=== PATIENT | female | born 1965 | race Caucasian/White ===

== ENCOUNTER 2020-06-19 14:17 | Outpatient (CLI) | payer OTHER ==
--- NOTE | 2020-06-19 16:19 | Ultrasound Report ---
PROCEDURE: Duplex Lwr Ext Arterial LT INDICATIONS: CHRONIC ULCER OF LOWER EXTREMITY TECHNIQUE: Color and pulse Doppler interrogation was performed of the left lower extremity arterial system, with image documentation. COMPARISON: No previous study is available for comparison. FINDINGS: Common femoral artery: 91.7 cm/sec, with triphasic flow. Deep femoral artery: 64.9 cm/sec, with triphasic flow. Proximal superficial femoral artery: 79.2 cm/sec, with triphasic flow. Mid superficial femoral artery: 120.7 cm/sec, with triphasic flow. Distal superficial femoral artery: 55.8 cm/sec, with triphasic flow. Popliteal artery: 43.0 cm/sec, with triphasic flow. Posterior tibial artery: 52.8 cm/sec, with triphasic flow. Anterior tibial artery/dorsalis pedis: 23.0/37.3 cm/sec, with biphasic/triphasic flow. Garza-scale imaging description: Mild atherosclerotic plaque is seen at the mid superficial femoral a rtery and within the posterior tibial artery. IMPRESSION: 1. Atherosclerotic plaque is seen in the anterior tibial artery and dorsalis pedis artery with bipha sic flow, indicating mild to moderate stenosis. 2. Mild atherosclerotic plaque at the mid superficial femoral artery with preserved triphasic flow, compatible with minimal stenosis. Reviewed by: Eligio Weber MD on 06/19/2020 4:18 PM PDT Approved by: Eligio Weber MD on 06/19/2020 4:18 PM PDT Station ID: [id number]
== END 2020-06-19 14:18 | disposition home or self-care (01) ==
LOC: DI 14:17
PROVIDERS: ATTEND Physician Assistant
DX: L97.921 Non-pressure chronic ulcer of unspecified part of left lower leg limited to breakdown of skin (principal); I70.202 Unspecified atherosclerosis of native arteries of extremities, left leg

== ENCOUNTER 2020-07-06 14:40 | Outpatient (CLI) | payer OTHER ==
--- NOTE | 2020-07-06 15:59 | Ultrasound Report ---
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 COMPARISONS: None. FINDINGS: Right ankle brachial index (KATIE): 1.1 Left ankle brachial index (KATIE): 1.2 Monophasic waveforms are visualized within the right posterior tibial and dorsalis pedis arteries. Bi phasic waveforms are visualized within the left posterior tibial and dorsalis pedis arteries. Healing potential: Ankle pressures >55 mm Hg in non-diabetics and >80 mm Hg in diabetics are likely to achieve primary h ealing of ischemic foot ulcers. Toe pressures >30 mm Hg are likely to achieve primary healing of ischemic foot ulcers, toe or transme tatarsal amputations. IMPRESSION: 1. Bilateral ankle-brachial indices which indicate adequate pressures for wound healing. However, ank le-brachial indices can be artificially elevated in the presence of extensive vascular calcifications . If further characterization for lower extremity arterial stenosis is required, CT aortogram with bi lateral lower extremity runoff could be used. Reviewed by: Vanessa Vo MD on 07/06/2020 3:57 PM PDT Approved by: Vanessa Vo MD on 07/06/2020 3:57 PM PDT Station ID: [id number]
== END 2020-07-06 14:41 | disposition home or self-care (01) ==
LOC: DI 14:40
PROVIDERS: ATTEND Nurse Practitioner Family
DX: I70.202 Unspecified atherosclerosis of native arteries of extremities, left leg (principal)
CPT/HCPCS: 93922

== ENCOUNTER 2020-11-14 09:43 | Outpatient (CLI) | payer OTHER ==
--- NOTE | 2020-11-14 10:48 | XRAY Report ---
PROCEDURE: Wrist 4 View LT INDICATIONS: PAIN IN LEFT WRIST TECHNIQUE: 4 views of the wrist were acquired. COMPARISON: None FINDINGS: Bones: No fractures or dislocations. No suspicious bony lesions. Scaphoid view: No trauma to the scaphoid is found. Soft tissues: No suspicious soft tissue calcifications. IMPRESSION: On the lateral view at the dorsal aspect of the distal radius there is a small bone radiodensity that protrudes posterior to the expected cortical margin. This may reflect presence of a mildly distorted distal radius fracture seen on one view only. Please correlate for point tenderness in that region. Follow-up CT scanning or delayed plain film follow-up may be warranted depending on the clinical stat us. Reviewed by: Howard Owen MD on 11/14/2020 10:47 AM PST Approved by: Howard Owen MD on 11/14/2020 10:47 AM [facility] Station ID: [id number]
== END 2020-11-14 09:44 | disposition home or self-care (01) ==
LOC: DI.S 09:43
PROVIDERS: ATTEND Nurse Practitioner Family
DX: M25.532 Pain in left wrist (principal)

== ENCOUNTER 2020-11-23 12:10 | Outpatient (CLI) | payer OTHER ==
--- NOTE | 2020-11-23 13:19 | CT Report ---
PROCEDURE: UPPER EXTREMITY WO - LT INDICATIONS: FRACTURE OF DISTAL END OF RADIUS TECHNIQUE: Noncontrast 3 mm axial sections acquired of the , with coronal and sagittal reformats. COMPARISON: Wrist radiographs dated 11/14/2020. FINDINGS: Image quality: Excellent. Bones: Minimally displaced distal radial metaphyseal fracture, grossly unchanged alignment since 10/31. No definite extension to the distal radial articular surface. No incongruity of the distal ra dial articular surface is identified. Incidental focal subcentimeter lucencies present at the proximal pole of the hamate and capitate. Soft tissues: The visualized flexor and extensor tendons within normal limits. There is circumferent ial subcutaneous edema. IMPRESSION: Distal radial metaphyseal fracture in unchanged alignment. Reviewed by: Boyd Falk MD on 11/23/2020 1:17 PM PST Approved by: Boyd Falk MD on 11/23/2020 1:17 PM PST Station ID: [id number]
== END 2020-11-23 12:11 | disposition home or self-care (01) ==
LOC: DI 12:10
PROVIDERS: ATTEND Nurse Practitioner Family
DX: S52.502A Unspecified fracture of the lower end of left radius, initial encounter for closed fracture (principal)

== ENCOUNTER 2021-07-04 15:38 | Outpatient (CLI) | payer OTHER ==
[2021-07-04] MEDS ORDERED: IOVERSOL 320 50 ML VIAL ONE (16:07)
[2021-07-04] MEDS ORDERED: IOVERSOL 320 100 ML VIAL IVP ONE ×2 (16:07→17:55)
[2021-07-04] MEDS ORDERED: IOVERSOL 320 50 ML VIAL PO ONE (17:56)
--- NOTE | 2021-07-05 00:46 | CT Report ---
PROCEDURE: Abdomen/Pelvis W INDICATIONS: DIVERTICULITIS, LLQ PAIN CONTRAST: IV CONTRAST: Optiray 320 ml: 100 PO CONTRAST: Optiray 320 ml50 TECHNIQUE: After the administration of oral and intravenous contrast, 5 mm thick sections acquired from the diap hragms to the symphysis. 5 mm thick coronal and sagittal reformats were acquired. For radiation dos e reduction, the following was used: automated exposure control, adjustment of mA and/or kV accordin g to patient size. COMPARISON: 12/20/2015 FINDINGS: Image quality: Excellent. ABDOMEN: Lung bases: Lung bases are clear. Heart size is normal. Solid organs: Liver and spleen are normal in size and enhancement. Gallbladder is surgically absent . Biliary system is non dilated. Pancreas enhances normally. No adrenal nodules. Kidneys demonstr ate normal size and enhancement, without hydronephrosis. Peritoneum and bowel: Bowel loops demonstrate normal wall thickness and caliber. Diffuse sigmoid div erticulosis without evidence of diverticulitis. No free fluid or air. Nodes and vessels: No retroperitoneal or mesenteric adenopathy by size criteria. Aorta and inferior vena cava are normal in size. Diffuse atherosclerotic calcifications of the abdominal aorta as well as soft plaque. Common iliac artery atherosclerotic plaque. Miscellaneous: No ventral hernias. PELVIS: Genitourinary: Bladder wall thickness is normal. Miscellaneous: No inguinal hernias or adenopathy. Bones: No suspicious bony lesions. No vertebral body compression fractures. IMPRESSION: 1. Diffuse sigmoid diverticulosis without evidence of diverticulitis. 2. Remote cholecystectomy. 3. Diffuse aortic atherosclerotic calcifications and soft plaque. Reviewed by: Kenneth Nguyen MD on 07/05/2021 12:45 AM PDT Approved by: Kenneth Nguyen MD on 07/05/2021 12:45 AM PDT Station ID: [id number]
== END 2021-07-04 15:39 | disposition home or self-care (01) ==
LOC: DI 15:38
PROVIDERS: ATTEND Surgery
DX: K57.30 Diverticulosis of large intestine without perforation or abscess without bleeding (principal); I70.0 Atherosclerosis of aorta; Z90.49 Acquired absence of other specified parts of digestive tract
CPT/HCPCS: 74177; Q9967

== ENCOUNTER 2021-07-05 13:28 | Emergency (ER) | payer OTHER ==
[2021-07-05] MEDS ORDERED: MAG HYDROX/AL HYDROX/SIMETH 30 ML UDC PO STA (13:59)
[2021-07-05] MEDS ORDERED: LIDOCAINE VISCOUS 2% 15 ML UDC MM STA (13:59)
[2021-07-05] MEDS ORDERED: FAMOTIDINE 20 MG TABLET PO STA (13:59)
[2021-07-05] MEDS ORDERED: SUCRALFATE 1 GM/10 ML UDC PO STA (13:59)
--- NOTE | 2021-07-05 14:02 | ED Physician Documentation ---
PD HPI ABD PAIN - Stated complaint Stated Complaint: LT SIDE PX - Chief complaint Chief Complaint: Abd Pain - History obtained from History obtained from: Patient - History of Present Illness Pain level max: 8 Pain level now: 1 Quality: Cramping Location: Epigastric Radiation: No: Chest, , Lower back, Left flank, Left shoulder, Right flank, Right shoulder, Upper back Associated symptoms: Nausea. No: Vomiting, Hematemesis, Diarrhea, Constipation, Melena, Hematochezia, Dysuria Recently seen: Not recently seen - Additional information Additional information: Patient is a 55-year-old female who presents to the emergency department complaint of left upper quadrant abdominal pain today. She states it felt like a cramping pain. Similar to when she had her gallbladder removed but on the other side. Some nausea but no vomiting. She states that she had coffee and a rice cake this morning for breakfast. She does smoke and use marijuana regularly. She states that she had ulcers about 20 to 30 years ago and thinks this may have felt somewhat similar. It was nonradiating. Nothing made it better or worse. Currently the pain is a 1. Patient had a CT scan last night for possible diverticulitis. This was read as no acute abnormalities Review of Systems Ten Systems: 10 systems reviewed and negative Constitutional: denies: Fever, Chills Nose: denies: Rhinorrhea / runny nose, Congestion Respiratory: denies: Cough GI: denies: Nausea, Vomiting, Diarrhea Skin: denies: Rash Musculoskeletal: denies: Neck pain, Back pain Neurologic: denies: Headache PD PAST MEDICAL HISTORY - Past Medical History Past Medical History: Yes Cardiovascular: Murmur Respiratory: None Endocrine/Autoimmune: None GI: Ulcers BABYSITTER: None : None HEENT: None Psych: None Musculoskeletal: None Derm: None - Past Surgical History Past Surgical History: Yes General: Cholecystectomy /BABYSITTER: Tubal ligation - Present Medications Home Medications: Ambulatory Orders Medication Instructions Recorded Confirmed Ciprofloxacin HCl [Cipro] 500 mg PO BID #19 tablet 12/20/15 Dicyclomine [Bentyl] 10 mg PO QID PRN #14 capsule 12/20/15 Famotidine [Pepcid] 40 mg PO DAILY 12/20/15 12/20/15 Saccharomyces Boulardii [Florastor] 500 mg PO BID 10 Days capsule 12/20/15 metroNIDAZOLE [Flagyl] 500 mg PO BID #19 tablet 12/20/15 Esomeprazole Magnesium [Nexium] 40 mg PO DAILY #30 cap 07/05/21 Famotidine [Pepcid] 20 mg PO BID #60 tablet 07/05/21 Sucralfate [Carafate] 1 gm PO ACHS #60 tablet 07/05/21 - Allergies Allergies/Adverse Reactions: Allergies Allergy/AdvReac Type Severity Reaction Status Date / Time meperidine HCl * Allergy vomiting Verified 07/05/21 13:51 [From Demerol] Penicillins Allergy Hives Verified 07/05/21 13:51 - Social History Does the pt smoke?: Yes Smoking Status: Current every day smoker Does the pt drink ETOH?: No Does the pt have substance abuse?: No - Immunizations Immunizations are current?: Yes - POLST Patient has POLST: No PD ED PE NORMAL - Vitals Vital signs reviewed: Yes - General General: Alert and oriented X 3, No acute distress - HEENT HEENT: Moist mucous membranes - Neck Neck: Supple, no meningeal sign - Cardiac Cardiac: RRR, Strong equal pulses - Respiratory Respiratory: No respiratory distress, Clear bilaterally - Abdomen Abdomen: Soft, Non tender, Non distended - Back Back: No CVA TTP, No spinal TTP - Derm Derm: Warm and dry - Neuro Neuro: Alert and oriented X 3 - Psych Psych: Normal mood, Normal affect Results - Vitals Vitals: Vital Signs - 24 hr 07/05/21 07/05/21 13:42 15:02 Temperature 36 C L Heart Rate 76 88 Respiratory 16 18 Rate Blood Pressure 127/85 H 127/90 H O2 Saturation 98 97 Oxygen O2 Source Room air - Labs Labs: Laboratory Tests 07/05/21 07/05/21 14:07 14:07 WBC 10.7 RBC 4.60 Hgb 15.0 Hct 46.1 MCV 100.2 H MCH 32.6 H MCHC 32.5 RDW 13.1 Plt Count 413 MPV 9.3 Neut # (Auto) 7.3 H Lymph # (Auto) 2.5 [place] # (Auto) 0.8 Eos # (Auto) 0.1 Baso # (Auto) 0.1 Absolute Nucleated RBC 0.00 Nucleated RBC % 0.0 Sodium 138 Potassium 4.2 Chloride 102 Carbon Dioxide 28 Anion Gap 8.0 BUN 16 Creatinine 0.8 Estimated GFR (MDRD) 74 L Glucose 94 Calcium 9.1 Total Bilirubin 0.3 AST 16 ALT 18 Alkaline Phosphatase 73 Total Protein 7.7 Albumin 4.4 Globulin 3.3 Albumin/Globulin Ratio 1.3 Lipase 73 H PD MEDICAL DECISION MAKING - ED course Complexity details: reviewed results, re-evaluated patient, considered differential, d/w patient ED course: Symptoms resolved with GI cocktail. No significant lab abnormalities. We will place on PPI, H2 malathi and Carafate for home. Recommend she follow-up with Dr. Morelos for an endoscopy. Patient is well-appearing, nontoxic. Afebrile. Tolerating p.o. without difficulty. Currently asymptomatic. Patient counseled regarding signs and symptoms for which I believe and urgent re-evaluation would be necessary. Patient with good understanding of and agreement to plan and is comfortable going home at this time This document was made in part using voice recognition software. While efforts are made to proofread this document, sound alike and grammatical errors may occur. Departure - Departure Disposition: Home, Self Care Clinical Impression: Gastritis Qualifiers: Gastritis type: unspecified gastritis Chronicity: acute Gastritis bleeding: without bleeding Qualified Code(s): K29.00 - Acute gastritis without bleeding Condition: Good Instructions: ED PUD Vs Gastritis Follow-Up: Eusebio Morelos MD [Provider Admit Priv/Credential] - Within 1 week Prescriptions: Sucralfate [Carafate] 1 gm PO ACHS #60 tablet Esomeprazole Magnesium [Nexium] 40 mg PO DAILY #30 cap Famotidine [Pepcid] 20 mg PO BID #60 tablet Comments: Your symptoms are consistent with gastritis versus ulcer today. We will start you on medication to help with this. Please avoid spicy foods, fried foods, caffeine and energy drinks. Please avoid medications such as Motrin and Aleve as well. Please follow-up with Dr. Morelos for an endoscopy. Return if you worsen. Your prescriptions were sent to [facility] in [place] today. Discharge Date/Time: 07/05/21 15:03
[2021-07-05 14:11] LABS: BASOPHILS # (AUTO) 0.1 10^3/uL (0.0-0.1); BASOPHILS % (AUTO) 0.5 %; EOSINOPHILS # (AUTO) 0.1 10^3/uL (0.0-0.7); EOSINOPHILS % (AUTO) 0.7 %; HCT - HEMATOCRIT 46.1 % (37.0-47.0); LYMPHOCYTES # (AUTO) 2.5 10^3/uL (1.5-3.5); LYMPHOCYTES % (AUTO) 22.9 %; MEAN CORPUSCULAR HEMOGLOBIN 32.6 pg (27.0-31.0); MEAN CORPUSCULAR HGB CONC 32.5 g/dL (32.0-36.0); MEAN CORPUSCULAR VOLUME 100.2 fL (81.0-99.0); MEAN PLATELET VOLUME 9.3 fL (7.9-10.8); MONOCYTES # (AUTO) 0.8 10^3/uL (0.0-1.0); MONOCYTES % (AUTO) 7.4 %; NEUTROPHILS # (AUTO) 7.3 10^3/uL (1.5-6.6); NEUTROPHILS % (AUTO) 68.2 %; PLT - PLATELET COUNT 413 10^3/uL (130-450); RED CELL DISTRIBUTION WIDTH 13.1 % (12.0-15.0); WHITE BLOOD COUNT 10.7 x10^3/uL (4.8-10.8)
[2021-07-05 14:24] LABS: ALBUMIN 4.4 g/dL (3.2-5.5); ALBUMIN/GLOBULIN RATIO 1.3 (1.0-2.2); BILIRUBIN,TOTAL 0.3 mg/dL (0.2-1.0); CALCIUM 9.1 mg/dL (8.5-10.3); CREATININE 0.8 mg/dL (0.4-1.0); POTASSIUM 4.2 mmol/L (3.5-5.0); TOTAL PROTEIN 7.7 g/dL (6.7-8.2)
[2021-07-05 15:04] VITALS: BP 127/90
== END 2021-07-05 15:03 | disposition home or self-care (01) ==
LOC: ED 13:28
DX: K29.00 Acute gastritis without bleeding (principal); F17.200 Nicotine dependence, unspecified, uncomplicated
CPT/HCPCS: 36415; 80053; 83690; 85025; 99283; 99284; A9270

== ENCOUNTER 2021-10-18 08:11 | Day surgery (SDC) | payer OTHER ==
[2021-10-18] MEDS ORDERED: LACTATED RINGERS 1,000 ML IV ONE ×2 (08:18→10:50)
--- NOTE | 2021-10-18 09:10 | ANESTHESIA ---
Pre-Anesthesia VS, & Labs - Diagnosis polyps - Procedure colonoscopy Vital Signs: Temp Pulse Resp BP Pulse Ox 36.6 C 85 16 116/83 H 98 10/18/21 08:30 10/18/21 08:30 10/18/21 08:30 10/18/21 08:30 10/18/21 08:30 Height: 5 ft 5 in Weight (kg): 84 kg Body Mass Index: 30.8 BMI Classification: Obese - NPO >8 hours - Is Patient ?: No Home Medications and Allergies Home Medications: Ambulatory Orders No Known Home Medications 10/17/21 No Known Home Medications 10/17/21 Allergies/Adverse Reactions: Allergies Allergy/AdvReac Type Severity Reaction Status Date / Time meperidine HCl * Allergy vomiting Verified 10/17/21 12:08 [From Demerol] Penicillins Allergy Hives Verified 10/17/21 12:08 Anes History & Medical History - Anesthetic History Anesthesia Complications: reports: No previous complications - Medical History Cardiovascular: reports: Peripheral Vascular Disease Pulmonary: reports: None Gastrointestinal: reports: Ulcers, Colon polyps, Diverticulitis, Cholelithiasis Urinary: reports: None Musculoskeletal: reports: Chronic back pain Endocrine/Autoimmune: reports: None Blood Disorders: reports: None Skin: reports: Other Smoking Status: Current every day smoker History of Cancer?: No - Surgical History General: reports: Cholecystectomy, Colonoscopy, EGD Gynecologic: reports: Tubal ligation Exam General: Alert Dental: WNL Mouth Opening: Greater than 4 Fingerbreadths Mallampati classification: II Thyromental Distance: greater than 6 cm Respiratory: Lungs clear Cardiovascular: Regular rate Plan Anesthesia Type: Total IV Consent for Procedure(s) Verified and Reviewed: Yes Code Status: Attempt Resuscitation ASA classification: 2-Mild systemic disease Is this case an emergency?: No
[2021-10-18] MEDS ORDERED: PROPOFOL 500 MG/50 ML 500 MG/50 ML VIAL ONE (09:27)
[2021-10-18] MEDS ORDERED: fentaNYL 100 MCG/2 ML VIAL ONE (09:28)
[2021-10-18] MEDS ORDERED: MIDAZOLAM 2 MG/2 ML VIAL ONE (09:28)
[2021-10-18 11:27] VITALS: BP 132/88
--- NOTE | 2021-10-18 13:09 | ANESTHESIA POST OP EVALUATION ---
Anesthesia Post Eval - Post Anesthesia Eval Vitals: Last Vital Signs Temp 36.3 C L 10/18/21 11:26 Pulse 67 10/18/21 11:26 Resp 18 10/18/21 11:26 BP 132/88 H 10/18/21 11:26 Pulse Ox 97 10/18/21 11:26 CV Function Including HR & BP: Stable Pain Control: Satisfactory Nausea & Vomiting: Negative Mental Status: Baseline Respiratory Status: Airway Patent Hydration Status: Satisfactory Anesthesia Complications: None
== END 2021-10-18 08:12 | disposition home or self-care (01) ==
LOC: SDS 08:11
PROVIDERS: ATTEND Surgery
PROC: 0DBP8ZZ Excision of Rectum, Via Natural or Artificial Opening Endoscopic (ICD-10-PCS; 2021-10-18)
PROC: 0DBH8ZZ Excision of Cecum, Via Natural or Artificial Opening Endoscopic (ICD-10-PCS; principal; 2021-10-18 09:15)
DX: Z12.11 Encounter for screening for malignant neoplasm of colon (principal); D12.0 Benign neoplasm of cecum; K62.1 Rectal polyp; K57.30 Diverticulosis of large intestine without perforation or abscess without bleeding; K64.8 Other hemorrhoids; F17.200 Nicotine dependence, unspecified, uncomplicated; E66.9 Obesity, unspecified; Z68.30 Body mass index [BMI] 30.0-30.9, adult
CPT/HCPCS: 45385; J7120

== ENCOUNTER 2021-10-22 10:49 | Outpatient (CLI) | payer OTHER | END 2021-10-22 10:50 | disposition short-term general hospital (02) | LOC: EMS 10:49 | DX: R07.9 Chest pain, unspecified (principal) | CPT/HCPCS: A0425; A0427 ==

== ENCOUNTER 2021-11-07 14:34 | Outpatient (CLI) | payer OTHER ==
[2021-11-07 15:09] LABS: BASOPHILS # (AUTO) 0.1 10^3/uL (0.0-0.1); BASOPHILS % (AUTO) 0.8 %; EOSINOPHILS # (AUTO) 0.2 10^3/uL (0.0-0.7); EOSINOPHILS % (AUTO) 1.4 %; HCT - HEMATOCRIT 41.3 % (37.0-47.0); HGB - HEMOGLOBIN 13.9 g/dL (12.0-16.0); LYMPHOCYTES # (AUTO) 3.1 10^3/uL (1.5-3.5); LYMPHOCYTES % (AUTO) 26.9 %; MEAN CORPUSCULAR HEMOGLOBIN 33.7 pg (27.0-31.0); MEAN CORPUSCULAR HGB CONC 33.7 g/dL (32.0-36.0); MEAN PLATELET VOLUME 10.2 fL (7.9-10.8); MONOCYTES # (AUTO) 0.7 10^3/uL (0.0-1.0); NEUTROPHILS # (AUTO) 7.4 10^3/uL (1.5-6.6); NEUTROPHILS % (AUTO) 64.6 %; PLT - PLATELET COUNT 431 10^3/uL (130-450); RED BLOOD COUNT 4.13 10^6/uL (4.20-5.40); RED CELL DISTRIBUTION WIDTH 12.6 % (12.0-15.0); WHITE BLOOD COUNT 11.4 x10^3/uL (4.8-10.8)
[2021-11-07 15:27] LABS: THYROID STIMULATING HORMONE 4.76 uIU/mL (0.34-5.60)
[2021-11-07 15:29] LABS: SLIDE REVIEW? Indicated
[2021-11-07 16:41] LABS: PLATELET ESTIMATE, MANUAL NORMAL (130-450,000) (NORMAL); PLATELET MORPHOLOGY RARE GIANT PLATELETS (NORMAL); RBC MORPHOLOGY (MULTIPLE) NORMAL APPEARANCE (NORMAL)
== END 2021-11-07 14:35 | disposition home or self-care (01) ==
LOC: LAB 14:34
PROVIDERS: ATTEND Nurse Practitioner Family
DX: E03.9 Hypothyroidism, unspecified (principal); D72.829 Elevated white blood cell count, unspecified
CPT/HCPCS: 36415; 84443; 85025

== ENCOUNTER 2021-12-12 11:36 | Outpatient (CLI) | payer OTHER ==
[2021-12-12 12:09] LABS: CALCIUM 8.8 mg/dL (8.5-10.3); CREATININE 0.9 mg/dL (0.4-1.0); POTASSIUM 4.2 mmol/L (3.5-5.0)
[2021-12-12] MEDS ORDERED: IOVERSOL 320 100 ML VIAL IVP ONE ×2 (12:59→15:10)
--- NOTE | 2021-12-12 16:28 | CT Report ---
PROCEDURE: ANGIO CHEST W/WO INDICATIONS: THORACIC AORTIC ANEURYSM, EX SMOKER CONTRAST: IV CONTRAST: Optiray 320 ml: 80 PO CONTRAST: *NO PO CONTRAST TECHNIQUE: After the administration of intravenous contrast, 2 mm axial images were acquired from the pulmonary apices to the posterior costophrenic angles during the arterial phase. In addition, 1 mm lung kernel and 5 mm soft tissue kernel reconstructions were performed. 3-dimensional coronal oblique maximum int ensity projection (MIP) reformats, 8 mm axial MIP, and 5 mm coronal and sagittal MPR reformats were t hen performed through the thorax. For radiation dose reduction, the following was used: automated exp osure control, adjustment of mA and/or kV according to patient size. COMPARISON: None FINDINGS: Image quality: Excellent. Pulmonary arteries: Pulmonary arteries are normal in size, and demonstrate no intraluminal filling d efects to suggest central pulmonary embolism. Aorta: The ascending thoracic aorta measures 4.0 cm in diameter at the 5:00 and 11:00 position. Scatt ered atheromatous calcifications are present within the aortic arch. The descending thoracic aorta de monstrates normal caliber and wall thickness. No aneurysmal dilatation. Some atheromatous plaque is n oted along the posterior aspect of the superior abdominal aorta at the level of the celiac axis. Ther e is conventional anatomy of the great vessels. Visualized portions of the carotid arteries, subclavi an arteries, and vertebral arteries are widely patent. Lungs and pleura: Lungs are clear. There is mild paraseptal emphysema at the apices. No pleural eff usions or pneumothorax. Central and peripheral airways are patent. Mediastinum: Heart size is normal, without pericardial effusion. No mediastinal or hilar adenopathy . Thoracic aorta is normal in caliber and enhancement. Esophagus is normal in caliber, without hiat al hernia. Bones and chest wall: No suspicious bony lesions. Ribs and thoracic spine appear intact throughout. No axillary or supraclavicular adenopathy. The thyroid is normal in size and there are no incident al findings. Abdomen: Visualized upper abdominal solid organs appear normal in the early arterial phase of enhanc ement. IMPRESSION: 1. Upper limits of normal size for the ascending thoracic aorta. However, no annuloaortic ectasia. 2. Normal descending thoracic aorta. Normal pulmonary arteries. Reviewed by: Vanessa Vo MD on 12/12/2021 4:26 PM PDT Approved by: Vanessa Vo MD on 12/12/2021 4:26 PM PDT Station ID: [id number]
== END 2021-12-12 11:37 | disposition home or self-care (01) ==
LOC: DI 11:36
PROVIDERS: ATTEND Nurse Practitioner Family
DX: I71.2 Thoracic aortic aneurysm, without rupture (principal); Z87.891 Personal history of nicotine dependence
CPT/HCPCS: 36415; 71275; 80048; Q9967

== ENCOUNTER 2022-03-13 12:35 | Outpatient (CLI) | payer OTHER ==
[2022-03-13 12:48] LABS: BASOPHILS # (AUTO) 0.1 10^3/uL (0.0-0.1); BASOPHILS % (AUTO) 0.6 %; EOSINOPHILS # (AUTO) 0.2 10^3/uL (0.0-0.7); EOSINOPHILS % (AUTO) 1.9 %; HGB - HEMOGLOBIN 14.5 g/dL (12.0-16.0); LYMPHOCYTES # (AUTO) 2.9 10^3/uL (1.5-3.5); LYMPHOCYTES % (AUTO) 29.5 %; MEAN PLATELET VOLUME 9.7 fL (7.9-10.8); MONOCYTES # (AUTO) 0.6 10^3/uL (0.0-1.0); MONOCYTES % (AUTO) 6.4 %; NEUTROPHILS # (AUTO) 6.1 10^3/uL (1.5-6.6); NEUTROPHILS % (AUTO) 61.3 %; PLT - PLATELET COUNT 383 10^3/uL (130-450); RED CELL DISTRIBUTION WIDTH 12.8 % (12.0-15.0); WHITE BLOOD COUNT 9.9 x10^3/uL (4.8-10.8)
[2022-03-13 12:51] LABS: SLIDE REVIEW? Indicated
[2022-03-13 13:41] LABS: PLATELET ESTIMATE, MANUAL NORMAL (130-450,000) (NORMAL); PLATELET MORPHOLOGY NORMAL APPEARANCE (NORMAL)
[2022-03-13 13:42] LABS: RBC MORPHOLOGY (MULTIPLE) 1+ ANISOCYTOSIS (NORMAL); WBC MORPHOLOGY (MULTIPLE) NORMAL APPEARANCE (NORMAL)
== END 2022-03-13 12:36 | disposition home or self-care (01) ==
LOC: LAB 12:35
PROVIDERS: ATTEND Nurse Practitioner Family
DX: D75.839 Thrombocytosis, unspecified (principal)
CPT/HCPCS: 36415; 85025

== ENCOUNTER 2023-03-27 09:18 | Emergency (ER) | payer OTHER ==
--- NOTE | 2023-03-27 09:44 | ED Physician Documentation ---
PD HPI CHEST PAIN - Stated complaint Stated Complaint: CHEST PX - Chief complaint Chief Complaint: Cardiac - History obtained from History obtained from: Patient - History of Present Illness Timing - onset: How many hours ago (4), Today Timing - onset during: Light activity Timing - duration: Hours (4) Timing - details: Abrupt onset, Still present (still present minimally.), Waxing and waning Quality: Aching, Sharp, Pain Location: Left chest Radiation: No: Jaw, Neck, Back Improved by: No: Rest Worsened by: No: Exertion, Inspiration, Movement Associated symptoms: No: Shortness of air, Nausea, Vomiting, Feeling faint / dizzy Similar symptoms before: Has not had sx before (had history of VA with stents 2 years ago. The pain at that time was not like this but she is still concerned having any type of pain in the chest.) Recently seen: Not recently seen Review of Systems Constitutional: denies: Fever, Chills Nose: denies: Rhinorrhea / runny nose, Congestion Cardiac: reports: Chest pain / pressure. denies: Palpitations Respiratory: denies: Dyspnea, Cough GI: denies: Abdominal Pain, Vomiting, Diarrhea Skin: denies: Rash, Lesions PD PAST MEDICAL HISTORY - Past Medical History Past Medical History: Yes Cardiovascular: Peripheral Vascular Disease, VA Respiratory: None Endocrine/Autoimmune: None GI: Ulcers, Colon polyps, Diverticulitis, Cholelithiasis ENFORCEMENT OFFICER: None : None HEENT: None Psych: None Musculoskeletal: Chronic back pain Derm: Other - Past Surgical History Past Surgical History: Yes General: Cholecystectomy, Colonoscopy, EGD /ENFORCEMENT OFFICER: Tubal ligation - Present Medications Home Medications: Ambulatory Orders Medication Instructions Recorded Confirmed Aspirin [[place] Aspirin] 81 mg PO DAILY PM 03/27/23 03/27/23 Atorvastatin Calcium [Lipitor] 80 mg PO HS 03/27/23 03/27/23 Famotidine [Pepcid] 20 mg PO DAILY #20 tablet 03/27/23 Metoprolol Succinate [Toprol Xl] 25 mg PO DAILY 03/27/23 03/27/23 - Allergies Allergies/Adverse Reactions: Allergies Allergy/AdvReac Type Severity Reaction Status Date / Time meperidine HCl * Allergy vomiting Verified 03/27/23 09:37 [From Demerol] Penicillins Allergy Hives Verified 03/27/23 09:37 - Social History Does the pt smoke?: Yes Smoking Status: Current every day smoker Does the pt drink ETOH?: No Does the pt have substance abuse?: No - Immunizations Immunizations are current?: Yes - POLST Patient has POLST: No PD ED PE NORMAL - Vitals Vital signs reviewed: Yes - General General: Alert and oriented X 3, No acute distress, Well developed/nourished - Cardiac Cardiac: RRR, No murmur - Respiratory Respiratory: Clear bilaterally, Other (no chest wall tenderness. ) - Abdomen Abdomen: Soft, Non tender - Derm Derm: Normal color, Warm and dry - Extremities Extremities: No edema, No calf tenderness / cord - Neuro Neuro: Alert and oriented X 3, No motor deficit, No sensory deficit Results - Vitals Vitals: Oxygen O2 Source Room air - EKG (time done) 09:23 EKG releavant findings:: EKG personally interpreted by author of this note. Relevant findings are: Rate: Rate (enter#) (62) Rhythm: NSR [place]: Normal Intervals: Normal [place] QRS: Normal Ischemia: Normal ST segments, Q waves (Inferior, old). No: ST elevation c/w ischemia, ST depression - Labs Labs: Laboratory Tests 03/27/23 03/27/23 03/27/23 09:30 09:30 09:30 WBC 9.1 RBC 4.55 Hgb 15.3 Hct 44.6 MCV 98.0 MCH 33.6 H MCHC 34.3 RDW 12.5 Plt Count 428 MPV 10.2 Neut # (Auto) 6.1 Lymph # (Auto) 2.1 [place] # (Auto) 0.7 Eos # (Auto) 0.1 Baso # (Auto) 0.1 Absolute Nucleated RBC 0.00 Nucleated RBC % 0.0 Sodium 139 Potassium 3.7 Chloride 106 Carbon Dioxide 26 Anion Gap 7.0 BUN 16 Creatinine 0.9 Estimated GFR (MDRD) 64 L Glucose 127 H Calcium 8.9 Magnesium Total Bilirubin 0.4 AST 16 ALT 16 Alkaline Phosphatase 59 Troponin I High Sens 5.8 B-Natriuretic Peptide Total Protein 7.5 Albumin 3.9 Globulin 3.6 Albumin/Globulin Ratio 1.1 Lipase 46 03/27/23 03/27/23 09:30 09:30 WBC RBC Hgb Hct MCV MCH MCHC RDW Plt Count MPV Neut # (Auto) Lymph # (Auto) [place] # (Auto) Eos # (Auto) Baso # (Auto) Absolute Nucleated RBC Nucleated RBC % Sodium Potassium Chloride Carbon Dioxide Anion Gap BUN Creatinine Estimated GFR (MDRD) Glucose Calcium Magnesium 2.0 Total Bilirubin AST ALT Alkaline Phosphatase Troponin I High Sens B-Natriuretic Peptide 111 H Total Protein Albumin Globulin Albumin/Globulin Ratio Lipase - Rads (name of study) chest xray Relevant Findings:: Prelim report reviewed, EMP independent interpretation of test (no acute process), See rad report PD Medical Decision Making - ED course Complexity details: reviewed results (troponin negative as is BNP, CXR, ECG.), considered differential (having chest pain that is nonpleuritic, Normal CXR/Trp/ECG. Not sure the cause of the pain. Has been perisstent undulating the morning. not exertional. Consider possible reflex/esophageal with equivocal improvement eemli hernandez.), d/w patient Departure - Departure Disposition: 01 Home, Self Care Clinical Impression: Chest pain Condition: Stable Record reviewed to determine appropriate education?: Yes Instructions: ED Chest Pain Atypical Unkn Cause Prescriptions: Famotidine [Pepcid] 20 mg PO DAILY #20 tablet Comments: Your EKG, chest x-ray, blood tests are normal without any signs of heart attack, heart failure, pneumonia, fluid in or around the lungs, pancreas or liver inflammation. At this point its not clear the cause of your chest discomfort. Considerations of other possibilities that would not show on the testing could be esophageal irritation such as reflux or esophagitis. I would consider famotidine acid reducing medicine daily for the next several weeks and using antacids such as Maalox or Mylanta after meals and before bed for the next week or 2. See if you have less symptoms overall/episodes. Meanwhile, though there is no signs of acute heart attack or heart failure and your pattern of pain does not sound like angina, it could still be reasonable to call the [place] [facility] and arrange a follow-up. See if they would be inclined to do any provocative testing such as stress test. It would depend a little on their level of suspicion given that you had a heart cath with stents only 1-1/2 years ago. Discharge Date/Time: 03/27/23 12:54
[2023-03-27 09:47] LABS: BASOPHILS # (AUTO) 0.1 10^3/uL (0.0-0.1); BASOPHILS % (AUTO) 0.5 %; EOSINOPHILS # (AUTO) 0.1 10^3/uL (0.0-0.7); EOSINOPHILS % (AUTO) 0.9 %; HCT - HEMATOCRIT 44.6 % (37.0-47.0); HGB - HEMOGLOBIN 15.3 g/dL (12.0-16.0); LYMPHOCYTES # (AUTO) 2.1 10^3/uL (1.5-3.5); LYMPHOCYTES % (AUTO) 23.5 %; MEAN CORPUSCULAR HEMOGLOBIN 33.6 pg (27.0-31.0); MEAN CORPUSCULAR HGB CONC 34.3 g/dL (32.0-36.0); MEAN PLATELET VOLUME 10.2 fL (7.9-10.8); MONOCYTES # (AUTO) 0.7 10^3/uL (0.0-1.0); MONOCYTES % (AUTO) 7.6 %; NEUTROPHILS # (AUTO) 6.1 10^3/uL (1.5-6.6); NEUTROPHILS % (AUTO) 67.2 %; PLT - PLATELET COUNT 428 10^3/uL (130-450); RED BLOOD COUNT 4.55 10^6/uL (4.20-5.40); RED CELL DISTRIBUTION WIDTH 12.5 % (12.0-15.0); WHITE BLOOD COUNT 9.1 x10^3/uL (4.8-10.8)
[2023-03-27 09:58] LABS: ALBUMIN 3.9 g/dL (3.2-5.5); ALBUMIN/GLOBULIN RATIO 1.1 (1.0-2.2); BILIRUBIN,TOTAL 0.4 mg/dL (0.2-1.0); CALCIUM 8.9 mg/dL (8.5-10.3); CREATININE 0.9 mg/dL (0.4-1.0); POTASSIUM 3.7 mmol/L (3.5-5.0); TOTAL PROTEIN 7.5 g/dL (6.7-8.2)
--- NOTE | 2023-03-27 10:30 | XRAY Report ---
PROCEDURE: Chest 1 View X-Ray INDICATIONS: Chest pain TECHNIQUE: One view of the chest was acquired. COMPARISON: CT angiogram of chest dated 12/12/2021 and 05/24/2022. FINDINGS: Surgical changes and devices: None. Lungs and pleura: No pleural effusions or pneumothorax. Lungs are clear. Mediastinum: Mediastinal contours appear normal. Heart size is normal. Bones and chest wall: No suspicious bony lesions. Overlying soft tissues appear unremarkable. IMPRESSION: No acute cardiopulmonary process. Reviewed by: Micah Clayton MD on 03/27/2023 10:29 AM PDT Approved by: Micah Clayton MD on 03/27/2023 10:29 AM PDT Station ID: [id number]
[2023-03-27 12:28] VITALS: BP 151/88
[2023-03-27] MEDS ORDERED: FAMOTIDINE 20 MG TABLET PO STA (12:40)
[2023-03-27] MEDS ORDERED: MAG HYDROX/AL HYDROX/SIMETH 30 ML UDC PO STA (12:41)
== END 2023-03-27 12:54 | disposition home or self-care (01) ==
LOC: ED 09:18
DX: R07.9 Chest pain, unspecified (principal); F17.200 Nicotine dependence, unspecified, uncomplicated
CPT/HCPCS: 36415; 71045; 80053; 83690; 83735; 83880; 84484; 85025; 93005; 99284; A9270